=== PATIENT | male | born 1980 | race Caucasian/White ===

== ENCOUNTER 2016-06-26 07:44 | Emergency (ER) | payer BC ==
[~2016-06-26 07:44] MED LIST: DILAUDID2 MG PO; KEFLEX500 M1 PO; KEFLEX500 MG; NAPROSYN500 MG PO; NO MEDICATIONS; NORCO 5/325 TAB1 TAB PO; NORCO 7.5/325 T1 TAB PO; PROAIR HFA8.5 GM INH; VITAMIN D350000 UNI1 PO; ZOFRAN ODT4 MG/UDTAB PO
[2016-06-26] MEDS ORDERED: ALLERGY PILL (07:46)
[2016-06-26] MEDS ORDERED: NORCO 5-325 TA1 EACH PO (08:37)
[2016-06-26 09:25] LABS: CREATININE 0.91 mg/dl (0.60-1.30); eGFR VALUE FOR BLACK >90 mL/Min
== END 2016-06-26 10:05 ==
LOC: EDMED 07:44
PROVIDERS: Emergency Medicine
DX: R07.89 Other chest pain (principal); J45.909 Unspecified asthma, uncomplicated; Z90.89 Acquired absence of other organs; Z79.51 Long term (current) use of inhaled steroids; F17.290 Nicotine dependence, other tobacco product, uncomplicated